=== PATIENT | female | born 1950 | race Caucasian/White ===

== ENCOUNTER → 2016-07-04 | Outpatient (CLI) | payer MEDICAID | END | disposition home or self-care (01) | LOC: CFH 12:34 | PROVIDERS: ATTEND Nurse Practitioner Family | DX: Z12.31 Encounter for screening mammogram for malignant neoplasm of breast (principal) | CPT/HCPCS: G0202 ==

== ENCOUNTER 2017-08-15 06:11 | Inpatient (IN) | payer MEDICAID ==
[~2017-08-15] VITALS: Ht 165.1 cm; Wt 114.9 kg
[2017-08-15] MEDS ORDERED: SODIUM CHLORIDE 0.9% 1,000 ML IV ONE (06:28)
[2017-08-15] MEDS ORDERED: SODIUM CHLORIDE FLUSH 10ML SYR IVF ONE (06:30)
[2017-08-15 07:24] LABS: BASOPHILS # (AUTO) 0.07 x10^3/uL (0-0.1); BASOPHILS % (AUTO) 1 % (0-1); EOSINOPHILS # (AUTO) 0.03 x10^3/uL (0-0.4); EOSINOPHILS % (AUTO) 0 % (1-7); LYMPHOCYTES # (AUTO) 2.11 x10^3/uL (1-3.4); LYMPHOCYTES % (AUTO) 22 % (22-44); MD NO; MEAN CORPUSCULAR HEMOGLOBIN 25.7 pg (27.0-34.8); MEAN CORPUSCULAR HGB CONC 32.8 g/dL (32.4-35.8); MEAN CORPUSCULAR VOLUME 78.2 fL (80-100); MONOCYTES % (AUTO) 5 % (2-9); NEUTROPHILS # (AUTO) 7.13 x10^3/uL (1.8-6.8); NEUTROPHILS % (AUTO) 72 % (42-75); PLATELET COUNT 362 x10^3/uL (130-400); RED CELL DISTRIBUTION WIDTH 15.1 % (9.6-15.2)
[2017-08-15 07:38] LABS: ALANINE AMINOTRANSFERASE 28 U/L (12-78); ALBUMIN 3.7 g/dL (3.4-5.0); ANION GAP 15 mmol/L (5-15); CALCIUM 7.7 mg/dL (8.5-10.1); CHLORIDE 101 mmol/L (98-107); CREATININE 0.79 mg/dL (0.55-1.02)
[2017-08-15 07:40] LABS: AMPHETAMINE SCREEN, URINE Negative (Negative); BARBITURATE SCREEN, URINE Negative (Negative); BENZODIAZEPINE SCREEN, URINE Negative (Negative); CANNABINOID SCREEN, URINE Negative (Negative); COCAINE SCREEN, URINE Negative (Negative); METHADONE SCREEN, URINE Negative (Negative); OPIATE SCREEN, URINE Negative (Negative)
[2017-08-15 07:43] LABS: ALKALINE PHOSPHATASE 133 U/L (45-117); BILIRUBIN,TOTAL 0.5 mg/dL (0.2-1.0); TOTAL PROTEIN 7.9 g/dL (6.4-8.2); TROPONIN I < 0.015 ng/mL (0.000-0.045)
[2017-08-15 08:06] LABS: SALICYLATE LEVEL < 1.7 mg/dL (2.8-20.0)
[2017-08-15 08:07] LABS: ACETAMINOPHEN < 2 mcg/mL (10-30)
[2017-08-15 08:44] LABS: MICROSCOPIC INDICATED
[2017-08-15] MEDS ORDERED: SEROQUEL (09:23)
[2017-08-15] MEDS ORDERED: CELEXA (09:23)
[2017-08-15 09:27] LABS: CULTURE INDICATED? NO
[2017-08-15] MEDS ORDERED: LORazepam 2 MG/ML, 1ML ONE ×3 (11:14→15:47)
[2017-08-15] MEDS ORDERED: LORazepam 1MG TABLET PO ONE (11:30)
[2017-08-15] MEDS ORDERED: LORazepam 2 MG/ML, 1ML IVPush STA (11:50)
[2017-08-15] MEDS: LORazepam 2 MG/ML, 1ML IVPush PRN ×2 (14:25→15:48)
[2017-08-15] MEDS ORDERED: SODIUM CHLORIDE 0.9% 1,000 ML IV SCH (15:27)
[2017-08-15] MEDS ORDERED: hydrALAzine 20 MG/ML, 1ML IV PRN (15:30)
[2017-08-15] MEDS ORDERED: LORazepam 2 MG/ML, 1ML IV PRN ×4 (15:30)
[2017-08-15] MEDS ORDERED: ACETAMINOPHEN 325 MG TABLET PO PRN (15:30)
[2017-08-15] MEDS ORDERED: LORazepam 0.5MG TABLET PO PRN (15:30)
[2017-08-15] MEDS ORDERED: ONDANSETRON 2MG/ML, 2ML IV PRN (15:30)
[2017-08-15] MEDS ORDERED: POTASSIUM CHLORIDE 20 MEQ, MAGNESIUM SULFATE 1 GM, FOLIC ACID 1 MG, THIAMINE 200 MG, MV... IV SCH (15:30)
[2017-08-15] MEDS ORDERED: LORazepam 1MG TABLET PO PRN ×3 (15:30)
[2017-08-15] MEDS ORDERED: DOCUSATE 100 MG CAPSULE PO PRN (15:30)
[2017-08-15 16:15] LABS: IRON LEVEL 53 mcg/dL (50-170)
[2017-08-15] MEDS: CHLORDIAZEPOXIDE 10 MG CAPSULE PO SCH ×2 (16:24→21:36)
[2017-08-15 16:41] LABS: % IRON SATURATION 12 % (20-55); TOTAL IRON BINDING CAPACITY 460 mcg/dL (250-450); TRANSFERRIN 350 mg/dL (200-360)
[2017-08-15 16:46] LABS: FOLATE LEVEL > 20.0 ng/mL (3.1-17.5)
[2017-08-15 19:10] VITALS: BP 176/90
[2017-08-15] MEDS: ENOXAPARIN 40 MG/0.4 ML SQ SCH (21:36)
[2017-08-15] MEDS ORDERED: CITA20TA9 PO (22:09)
[2017-08-15] MEDS ORDERED: QUET300T5 PO (22:09)
[2017-08-15] MEDS: QUETIAPINE 100MG TABLET PO SCH (22:32)
[2017-08-16 00:55] VITALS: BP 130/75
[2017-08-16] MEDS: CHLORDIAZEPOXIDE 10 MG CAPSULE PO SCH ×2 (05:07→11:14)
[2017-08-16 05:45] LABS: ANION GAP 8 mmol/L (5-15); CALCIUM 7.8 mg/dL (8.5-10.1); CHLORIDE 105 mmol/L (98-107); CREATININE 0.72 mg/dL (0.55-1.02)
[2017-08-16 05:51] LABS: BASOPHILS # (AUTO) 0.06 x10^3/uL (0-0.1); BASOPHILS % (AUTO) 1 % (0-1); EOSINOPHILS # (AUTO) 0.16 x10^3/uL (0-0.4); EOSINOPHILS % (AUTO) 2 % (1-7); LYMPHOCYTES # (AUTO) 2.25 x10^3/uL (1-3.4); LYMPHOCYTES % (AUTO) 25 % (22-44); MD NO; MEAN CORPUSCULAR HEMOGLOBIN 26.1 pg (27.0-34.8); MEAN CORPUSCULAR HGB CONC 33.3 g/dL (32.4-35.8); MEAN CORPUSCULAR VOLUME 78.3 fL (80-100); MONOCYTES # (AUTO) 0.76 x10^3/uL (0.2-0.8); MONOCYTES % (AUTO) 8 % (2-9); NEUTROPHILS # (AUTO) 5.75 x10^3/uL (1.8-6.8); NEUTROPHILS % (AUTO) 64 % (42-75); PLATELET COUNT 243 x10^3/uL (130-400); RED CELL DISTRIBUTION WIDTH 15.3 % (9.6-15.2)
[2017-08-16 06:57] VITALS: BP 141/86
[2017-08-16] MEDS: CITALOPRAM 20 MG TABLET PO SCH (08:22)
[2017-08-16] MEDS ORDERED: ERGOCALCIFEROL 50,000 UNIT CAPSULE PO SCH (09:00)
[2017-08-16] MEDS ORDERED: POTASSIUM CHLORIDE 20 MEQ TAB.ER.PRT PO ONE (09:00)
[2017-08-16] MEDS: ASCORBIC ACID 500 MG TABLET PO SCH (09:06)
[2017-08-16] MEDS: CALCIUM CARBONATE 500 MG TABLET PO SCH ×2 (09:06→21:03)
[2017-08-16] MEDS: DOCUSATE 100 MG CAPSULE PO SCH (09:06)
[2017-08-16] MEDS: FERROUS SULFATE 325 MG TABLET PO SCH ×3 (09:08→17:11)
[2017-08-16] MEDS: THIAMINE 100MG TABLET PO SCH (13:22)
[2017-08-16] MEDS: FOLIC ACID 1 MG TABLET PO SCH (13:22)
[2017-08-16 14:42] VITALS: BP 148/84
[2017-08-16] MEDS: MULTIVIT.W/IRON, MINERALS ORAL SOL PO SCH (15:23)
[2017-08-16 18:35] VITALS: BP 145/79
[2017-08-16] MEDS ORDERED: QUETIAPINE 100MG TABLET PO SCH (21:00)
[2017-08-16] MEDS: ENOXAPARIN 40 MG/0.4 ML SQ SCH (21:03)
[2017-08-16] MEDS: QUETIAPINE 100MG TABLET PO SCH (21:03)
[2017-08-17 00:22] VITALS: BP 126/81
[2017-08-17 05:37] LABS: CHLORIDE 107 mmol/L (98-107)
[2017-08-17 05:42] LABS: ANION GAP 9 mmol/L (5-15); CALCIUM 9.1 mg/dL (8.5-10.1); CREATININE 0.72 mg/dL (0.55-1.02)
[2017-08-17 05:43] LABS: BASOPHILS # (AUTO) 0.06 x10^3/uL (0-0.1); BASOPHILS % (AUTO) 1 % (0-1); EOSINOPHILS # (AUTO) 0.51 x10^3/uL (0-0.4); EOSINOPHILS % (AUTO) 7 % (1-7); LYMPHOCYTES # (AUTO) 2.56 x10^3/uL (1-3.4); LYMPHOCYTES % (AUTO) 35 % (22-44); MD NO; MEAN CORPUSCULAR HGB CONC 32.6 g/dL (32.4-35.8); MEAN CORPUSCULAR VOLUME 79.6 fL (80-100); MEAN PLATELET VOLUME 8.1 fL (7.4-10.4); MONOCYTES # (AUTO) 0.52 x10^3/uL (0.2-0.8); MONOCYTES % (AUTO) 7 % (2-9); NEUTROPHILS # (AUTO) 3.64 x10^3/uL (1.8-6.8); NEUTROPHILS % (AUTO) 50 % (42-75); PLATELET COUNT 252 x10^3/uL (130-400); RED BLOOD COUNT 4.25 x10^6/uL (3.82-5.3); RED CELL DISTRIBUTION WIDTH 15.9 % (9.6-15.2)
[2017-08-17 08:05] VITALS: BP 123/78
[2017-08-17] MEDS ORDERED: POTASSIUM CHLORIDE 20 MEQ TAB.ER.PRT PO ONE (08:30)
[2017-08-17] MEDS: DOCUSATE 100 MG CAPSULE PO SCH (09:00)
[2017-08-17] MEDS: FERROUS SULFATE 325 MG TABLET PO SCH ×2 (10:21→12:26)
[2017-08-17] MEDS: FOLIC ACID 1 MG TABLET PO SCH (10:21)
[2017-08-17] MEDS: ASCORBIC ACID 500 MG TABLET PO SCH (10:22)
[2017-08-17] MEDS: CALCIUM CARBONATE 500 MG TABLET PO SCH (10:22)
[2017-08-17] MEDS: CITALOPRAM 20 MG TABLET PO SCH (10:22)
[2017-08-17] MEDS: MULTIVIT.W/IRON, MINERALS ORAL SOL PO SCH (10:22)
[2017-08-17] MEDS: THIAMINE 100MG TABLET PO SCH (10:22)
[2017-08-17] MEDS ORDERED: FOLI-17 PO (12:17)
[2017-08-17] MEDS ORDERED: CALC-666 PO (12:17)
[2017-08-17] MEDS ORDERED: ERGO500017 PO (12:17)
[2017-08-17] MEDS ORDERED: ASCO500T6 PO (12:17)
[2017-08-17] MEDS ORDERED: FERR-51 PO (12:17)
[2017-08-17] MEDS ORDERED: THIA100T6 PO (12:17)
[2017-08-17] MEDS ORDERED: PNEUMOCOCCAL 23 VACCINE IM-VACC ONE (12:30)
[2017-08-17 14:07] VITALS: BP 124/82
== END 2017-08-17 16:18 | disposition home or self-care (01) | DRG 92 ==
LOC: ED 08:32 → EDIP 14:20 → 4WST 16:13
PROVIDERS: ADMIT Internal Medicine; ATTEND Internal Medicine
PROC: 0T9B70Z Drainage of Bladder with Drainage Device, Via Natural or Artificial Opening (ICD-10-PCS; principal; 2017-08-15)
DX: G92 Toxic encephalopathy (principal); E87.1 Hypo-osmolality and hyponatremia; E87.2 Acidosis; E83.51 Hypocalcemia; D50.9 Iron deficiency anemia, unspecified; F10.220 Alcohol dependence with intoxication, uncomplicated; F10.239 Alcohol dependence with withdrawal, unspecified; E87.6 Hypokalemia; I10 Essential (primary) hypertension; K59.00 Constipation, unspecified; Y90.6 Blood alcohol level of 120-199 mg/100 ml; Z80.0 Family history of malignant neoplasm of digestive organs; Z81.8 Family history of other mental and behavioral disorders
CPT/HCPCS: 36415; 70450; 71045; 80048; 80053; 80307; 80329; 81001; 82140; 82306; 82330; 82607; 82728; 82746; 83540; 83550; 83735; 84443; 84466; 84484; 85025; 90732; 93005; 96361; 96374; 96376; J1650; J3411; J3475; J3480; G0480; J2060; J7030; J7121

== ENCOUNTER 2017-10-28 10:00 | Inpatient (IN) | payer MEDICAID, OTHER ==
[2017-10-28] VITALS (10 sets, daily range): BP systolic 120–144; BP diastolic 65–82
[~2017-10-28] VITALS: Ht 162.6 cm; Wt 113.8 kg
[~2017-10-28 10:00] MED LIST: ASCO500T6 PO; CALC-666 PO; CELEXA; CITA20TA9 PO; ERGO500017 PO; FERR-51 PO; FOLI-17 PO; QUET300T5 PO; SEROQUEL; THIA100T67 PO
[2017-10-28] MEDS ORDERED: BLOOD PRESSURE (10:27)
[2017-10-28] MEDS ORDERED: BUPR-86 PO (10:27)
[2017-10-28] MEDS ORDERED: SODIUM CHLORIDE FLUSH 10ML SYR IVF ONE (10:30)
[2017-10-28] MEDS ORDERED: LORazepam 2 MG/ML, 1ML IVP ONE (10:30)
[2017-10-28] MEDS ORDERED: LORazepam 2 MG/ML, 1ML ONE (11:03)
[2017-10-28 11:25] LABS: ALANINE AMINOTRANSFERASE 17 U/L (12-78); ALBUMIN 3.1 g/dL (3.4-5.0); ANION GAP 10 mmol/L (5-15); CALCIUM 8.6 mg/dL (8.5-10.1); CHLORIDE 112 mmol/L (98-107)
[2017-10-28 11:26] LABS: D-DIMER 2.17 ug/mlFEU (0.00-0.52); INTERNATIONAL NORMALIZED RATIO 1.01 (0.93-1.1); PROTHROMBIN TIME 10.4 Seconds (9.6-11.5)
[2017-10-28 11:29] LABS: ALKALINE PHOSPHATASE 98 U/L (45-117); BILIRUBIN,TOTAL 0.2 mg/dL (0.2-1.0); TOTAL PROTEIN 7.1 g/dL (6.4-8.2); TROPONIN I < 0.015 ng/mL (0.000-0.045)
[2017-10-28 12:05] LABS: MEAN CORPUSCULAR HEMOGLOBIN 19.3 pg (27.0-34.8); MEAN CORPUSCULAR HGB CONC 30.1 g/dL (32.4-35.8); MEAN CORPUSCULAR VOLUME 64.1 fL (80-100); MEAN PLATELET VOLUME 7.8 fL (7.4-10.4); PLATELET COUNT 405 x10^3/uL (130-400); RED BLOOD COUNT 3.51 x10^6/uL (3.82-5.3); RED CELL DISTRIBUTION WIDTH 21.8 % (9.6-15.2)
[2017-10-28 12:07] LABS: HEMOGRAM NOTE RECHECKED
[2017-10-28 12:15] LABS: BASOPHILS # (AUTO) 0.09 x10^3/uL (0-0.1); BASOPHILS % (AUTO) 1 % (0-1); EOSINOPHILS % (AUTO) 5 % (1-7); LYMPHOCYTES # (AUTO) 1.27 x10^3/uL (1-3.4); LYMPHOCYTES % (AUTO) 19 % (22-44); MD MORPH REVIEW ONLY; MONOCYTES # (AUTO) 0.53 x10^3/uL (0.2-0.8); MONOCYTES % (AUTO) 8 % (2-9); NEUTROPHILS # (AUTO) 4.42 x10^3/uL (1.8-6.8); NEUTROPHILS % (AUTO) 67 % (42-75)
[2017-10-28 12:16] LABS: ANISOCYTOSIS 2+; MICROCYTOSIS 2+; POLYCHROMASIA 1+
[2017-10-28 12:17] LABS: <PLATELET ESTIMATE> INCREASED; <PLT MORPHOLOGY> NORMAL PLT MORPH; HYPOCHROMIA 1+
[2017-10-28] MEDS ORDERED: OMNIPAQUE 350 MG/ML, 100ML BOTTLE ONE ×2 (13:11→13:33)
[2017-10-28] MEDS ORDERED: HEPARIN 25,000 UNITS/500ML PMX 500 ML ONE (13:44)
[2017-10-28] MEDS ORDERED: HEPARIN 5,000 UNITS/ML, 1ML ONE ×2 (13:44→13:54)
[2017-10-28] MEDS ORDERED: HEPARIN 5,000 UNITS/ML, 1ML IV PRN (14:00)
[2017-10-28] MEDS ORDERED: HEPARIN 5,000 UNITS/ML, 1ML IV ONE (14:00)
[2017-10-28] MEDS ORDERED: SODIUM CHLORIDE FLUSH 10ML SYR IVF PRN (14:00)
[2017-10-28] MEDS ORDERED: HEPARIN 25,000 UNITS/500ML PMX 500 ML IV PRN (14:00)
[2017-10-28] MEDS ORDERED: morphine SULFATE 10 MG/ML, 1ML IVPush PRN (15:00)
[2017-10-28] MEDS ORDERED: HYDROcodone/APAP 5/325 TABLET PO PRN (15:00)
[2017-10-28] MEDS ORDERED: ONDANSETRON 2MG/ML, 2ML IVPush PRN (15:00)
[2017-10-28] MEDS ORDERED: ACETAMINOPHEN 325 MG TABLET PO PRN (15:00)
[2017-10-28] MEDS ORDERED: POLYETHYLENE GLYCOL 17 GM PACKET PO PRN (15:00)
[2017-10-28 15:28] LABS: % IRON SATURATION 2 % (20-55); IRON LEVEL 12 mcg/dL (50-170); TOTAL IRON BINDING CAPACITY 493 mcg/dL (250-450)
[2017-10-28] MEDS: BUPROPION SR 150 MG TABLET PO SCH (21:33)
[2017-10-28] MEDS: QUETIAPINE 200 MG TABLET PO SCH (21:33)
[2017-10-28] MEDS: HEPARIN 5,000 UNITS/ML, 1ML IV PRN (22:34)
[2017-10-29 00:02] VITALS: BP 115/76
[2017-10-29 05:32] LABS: MEAN CORPUSCULAR HEMOGLOBIN 21.2 pg (27.0-34.8); MEAN CORPUSCULAR VOLUME 68.6 fL (80-100); MEAN PLATELET VOLUME 7.5 fL (7.4-10.4); PLATELET COUNT 323 x10^3/uL (130-400); RED CELL DISTRIBUTION WIDTH 26.6 % (9.6-15.2)
[2017-10-29 05:40] LABS: CHLORIDE 110 mmol/L (98-107)
[2017-10-29 05:47] LABS: ALANINE AMINOTRANSFERASE 15 U/L (12-78); ALKALINE PHOSPHATASE 89 U/L (45-117); ANION GAP 7 mmol/L (5-15); BILIRUBIN,TOTAL 0.6 mg/dL (0.2-1.0); CALCIUM 8.2 mg/dL (8.5-10.1); CREATININE 1.03 mg/dL (0.55-1.02); TOTAL PROTEIN 6.7 g/dL (6.4-8.2)
[2017-10-29 05:55] LABS: BASOPHILS # (AUTO) 0.08 x10^3/uL (0-0.1); BASOPHILS % (AUTO) 1 % (0-1); EOSINOPHILS % (AUTO) 6 % (1-7); LYMPHOCYTES % (AUTO) 35 % (22-44); MD SCAN; MONOCYTES # (AUTO) 0.68 x10^3/uL (0.2-0.8); MONOCYTES % (AUTO) 8 % (2-9); NEUTROPHILS # (AUTO) 4.52 x10^3/uL (1.8-6.8); NEUTROPHILS % (AUTO) 51 % (42-75)
[2017-10-29] MEDS: HEPARIN 25,000 UNITS/500ML PMX 500 ML IV PRN ×2 (06:23→22:05)
[2017-10-29 07:20] VITALS: BP 110/74
[2017-10-29] MEDS: BUPROPION SR 150 MG TABLET PO SCH ×2 (08:37→20:31)
[2017-10-29 13:03] VITALS: BP 130/83
[2017-10-29] MEDS: HEPARIN 5,000 UNITS/ML, 1ML IV PRN ×2 (14:27→22:03)
[2017-10-29 16:25] VITALS: BP 132/87
[2017-10-29] MEDS: IRON SUCROSE COMPLEX 100MG/5ML IV SCH (18:19)
[2017-10-29 19:17] VITALS: BP 128/75
[2017-10-29] MEDS: QUETIAPINE 200 MG TABLET PO SCH (20:31)
[2017-10-30 00:04] VITALS: BP 120/74
[2017-10-30 06:53] VITALS: BP 121/85
[2017-10-30] MEDS ORDERED: MEPERIDINE/PF 25MG/0.5ML IVPush PRN (08:30)
[2017-10-30] MEDS ORDERED: OXYcodone 5 MG/5 ML ORAL.SOL UDC PO PRN (08:30)
[2017-10-30] MEDS ORDERED: HALOPERIDOL 5 MG/ML IV PRN (08:30)
[2017-10-30] MEDS ORDERED: hydrALAzine 20 MG/ML, 1ML IV PRN (08:30)
[2017-10-30] MEDS ORDERED: ACETAMINOPHEN 325 MG TABLET PO PRN (08:30)
[2017-10-30] MEDS ORDERED: FENTANYL PF 100 MCG/2ML IV PRN (08:30)
[2017-10-30] MEDS ORDERED: LABETALOL 5MG/ML, 20ML IV PRN (08:30)
[2017-10-30] MEDS ORDERED: HYDROmorphone 1 MG/ML, 1ML IV PRN (08:30)
[2017-10-30 08:50] VITALS: BP 98/67
[2017-10-30] MEDS: HEPARIN 25,000 UNITS/500ML PMX 500 ML IV PRN (10:25)
[2017-10-30] MEDS: HEPARIN 5,000 UNITS/ML, 1ML IV PRN (10:29)
[2017-10-30] MEDS: IRON SUCROSE COMPLEX 100MG/5ML IV SCH (10:33)
[2017-10-30] MEDS: BUPROPION SR 150 MG TABLET PO SCH (10:33)
[2017-10-30 11:39] VITALS: BP 118/76
[2017-10-30 12:16] VITALS: BP 107/70
[2017-10-30] MEDS ORDERED: FERR325T17 PO (13:52)
[2017-10-30] MEDS ORDERED: OMEP-110 PO (13:52)
[2017-10-30] MEDS ORDERED: RIVA20TA PO (13:52)
== END 2017-10-30 17:58 | disposition home or self-care (01) | DRG 175 ==
LOC: ED 13:16 → EDIP 13:37 → SUATTDRO 14:10 → 4EST 14:50
PROVIDERS: ADMIT Hospitalist; ATTEND Internal Medicine
PROC: 30233N1 Transfusion of Nonautologous Red Blood Cells into Peripheral Vein, Percutaneous Approach (ICD-10-PCS; principal; 2017-10-28)
PROC: 0DB98ZX Excision of Duodenum, Via Natural or Artificial Opening Endoscopic, Diagnostic (ICD-10-PCS; 2017-10-30)
PROC: 0DB68ZX Excision of Stomach, Via Natural or Artificial Opening Endoscopic, Diagnostic (ICD-10-PCS; 2017-10-30)
DX: I26.99 Other pulmonary embolism without acute cor pulmonale (principal); N17.0 Acute kidney failure with tubular necrosis; D68.69 Other thrombophilia; Z68.41 Body mass index [BMI] 40.0-44.9, adult; K25.9 Gastric ulcer, unspecified as acute or chronic, without hemorrhage or perforation; D50.9 Iron deficiency anemia, unspecified; E66.01 Morbid (severe) obesity due to excess calories; G47.33 Obstructive sleep apnea (adult) (pediatric); I07.1 Rheumatic tricuspid insufficiency; I10 Essential (primary) hypertension; F32.9 Major depressive disorder, single episode, unspecified; Z66 Do not resuscitate; K21.9 Gastro-esophageal reflux disease without esophagitis; K29.70 Gastritis, unspecified, without bleeding; K44.9 Diaphragmatic hernia without obstruction or gangrene; Z80.0 Family history of malignant neoplasm of digestive organs; Z80.52 Family history of malignant neoplasm of bladder; Z85.820 Personal history of malignant melanoma of skin; Z86.010 Personal history of colon polyps; Z86.711 Personal history of pulmonary embolism; Z87.11 Personal history of peptic ulcer disease; Z90.49 Acquired absence of other specified parts of digestive tract
CPT/HCPCS: 36415; 71046; 71275; 80053; 82306; 83010; 83540; 83550; 83615; 83735; 83880; 84100; 84484; 85025; 85379; 85520; 85610; 85730; 86850; 86900; 86923; 88305; 93005; 93306; 96365; 99291; J1644; J1756; J2250; J3010; Q9967; J2060; P9016

== ENCOUNTER → 2018-06-10 | Outpatient (CLI) | payer MEDICARE, MEDICAID ==
[~2018-06-10] MED LIST changes: +BLOOD PRESSURE; +BUPR-86 PO; +FERR325T17 PO; +OMEP-110 PO; +OMNIPAQUE 350 MG/ML, 100ML BOTTLE ONE; +RIVA20TA PO
== END | disposition home or self-care (01) ==
LOC: CFH 12:54
PROVIDERS: ATTEND Nurse Practitioner Family
DX: K44.9 Diaphragmatic hernia without obstruction or gangrene (principal); J98.11 Atelectasis
CPT/HCPCS: 71275; Q9967